=== PATIENT | male | born 2000 | race Two or more races ===

== ENCOUNTER 2020-11-19 20:53 | Emergency (ER) | payer SELFPAY ==
[~2020-11-19] VITALS: Ht 167.6 cm; Wt 119.0 kg
[2020-11-19 23:38] VITALS: BP 120/64
--- NOTE | 2020-11-19 23:50 | PHYS DOC ---
Past Medical History Past Medical History: No Pertinent History Past Surgical History: No Surgical History Smoking Status: Never Smoker Alcohol Use: None General Adult EDM: Chief Complaint: Fever, body aches HPI: HPI: 20-year-old male is otherwise healthy, coming to the emergency department complaining of several days of fever, body aches and fatigue, he denies any headache or neck stiffness/photophobia, no shortness of breath or chest pain but does complain of a dry cough, no loss of taste or smell, he is unfortunately not vaccinated to COVID-19, no recent travel or antibiotic use Review of Systems: Review of Systems: General: Positive for fever, no chills ss Eyes: no blurred vision, no diplopia Skin: no rashes Neck: no swelling, no neck stiffness, no neck pain Heme: no bleeding, no lymph node enlargement Ear/Nose/Throat: + sore throat, no runny nose, no hearing loss, no difficulty swallowing Cardiovascular: no Chest pain, no palpitations Respiratory: No dyspnea, no cough, no hemoptysis Gastrointestinal: No abdominal pain, no nausea, no vomiting, no diarrhea, no blood in stool Genitourinary: no dysuria, no hematuria Musculoskeletal: no back pain, no leg pain, no arm pain, no arthralgia Neurologic: no headaches, no dizziness, no focal numbness/tingling, no focal weakness Psych: no depression, no anxiety, no SI/HI *All review of systems are negative other than what is noted above Heart Score: C/O Chest Pain: No Risk Factors: Risk Factors: DM, Current or recent (<one month) smoker, HTN, HLP, family history of CAD, obesity. Risk Scores: Score 0 - 3: 2.5% MACE over next 6 weeks - Discharge Home Score 4 - 6: 20.3% MACE over next 6 weeks - Admit for Clinical Observation Score 7 - 10: 72.7% MACE over next 6 weeks - Early Invasive Strategies Physical Exam: PE: Gen-well appearing, no acute distress Head: Normocephalic/Atraumatic ENT: atraumatic, PERRLA, EOMI, oropharynx clear Neck: supple, full ROM/strength, no JVD, no nuchal rigidity Lungs: no distress, speaks in full sentences, Clear to auscultation bilaterally CV: reg rate, rhythm, no murmus/rubs/gallops, peripheral pulses equal in all extremities Abdomen: soft/nontender, no guarding/rebound tenderness, no rigidity, non distended, normoactive bowel sounds Musculoskeletal: full ROM/strength in all extremities, atraumatic, no swelling Back: full range of motion/strength Skin: intact, no rashes Lymph: no gross HUMPHREY Neuro: alert and oriented x 4, CN 2-12 grossly intact, Motor strength is 5/5 in all extremities, no focal sensory deficits, no focal ataxia, ambulatory with steady gait Psych: normal mood/affect Current Patient Data: Vital Signs: Vital Signs Date Time Temp Pulse Resp B/P (MAP) Pulse Ox O2 Delivery O2 Flow Rate FiO2 11/19/20 23:38 98.4 76 16 120/64 100 Room Air 98.4 EKG: EKG: [] Radiology/Procedures: Radiology/Procedures: [] Course & Med Decision Making: Course & Med Decision Making Pertinent Labs and Imaging studies reviewed. (See chart for details) [] 20-year-old male presented to the emergency department with a flulike illness highly suspicious for COVID-19, will do a rapid antigen test, he is neurologically intact, well-appearing otherwise, will give him some ibuprofen in the meantime, no clear location for imaging, Patient was seen in the ED for COVID-19 infection, the patient is actually asymptomatic at this time which is good news, oxygenating well, 100% room air oxygen saturation, there is no apparent evidence of any emergency medical pathology at this time, patient was advised follow-up with their primary care provider /physician in the next 24-48 hours and to return to the ED before then if any new or worsening / concerning symptoms had developed. All questions and concerns were addressed at time of disposition Dragon Disclaimer: Dragon Disclaimer: This electronic medical record was generated, in whole or in part, using a voice recognition dictation system. Departure Departure Impression: Primary Impression: COVID-19 Disposition: HOME / SELF CARE / HOMELESS Condition: GOOD Referrals: NO PCP (PCP) SHAAN PAYNE MD Patient Instructions: Fever, Adult Additional Instructions: You have COVID-19, this should resolve itself in about 7 to 10 days and in that timeframe you need to isolate yourself from others, please follow-up with your primary care doctor in the next 48 hours and I will give you a list of local primary care practitioners. Please return to the nearest emergency room before then if any new or worsening/concerning symptoms develop Scripts Naproxen (NAPROSYN) 500 Mg Tablet 1 TAB PO BID for pain for 15 Days, #30 TAB Prov: BLAYNE DOSHI MD 11/20/20 BLAYNE DOSHI MD Nov 19, 2020 23:50
[2020-11-20] MEDS ORDERED: NAPR-683 PO (00:18)
== END 2020-11-20 00:50 | disposition home or self-care (01) ==
LOC: ER 20:53
DX: U07.1 COVID-19 (principal)
CPT/HCPCS: 87426; 99283